=== PATIENT | male | born 1980 | race Caucasian/White ===

== ENCOUNTER 2016-12-02 11:23 | Day surgery (SDC) | payer OTHER ==
[~2016-12-02 11:23] MED LIST: ACETAMINOPHEN 500 MG TABLET PO PRN; HYDROmorphone HCL 2 MG/ML VIAL IV PRN; oxyCODONE HCL/ACETAMINOPHEN 1 TAB TABLET PO PRN
[2016-12-02] MEDS ORDERED: ceFAZolin SODIUM/DEXTROSE,ISO 2 GM/50 ML BAG IV SCH (12:00)
[2016-12-02] MEDS ORDERED: DIPHTH,PERTUSS(ACELL),TET VAC 0.5 ML VIAL IM ONE ×2 (12:00→12:07)
--- NOTE | 2016-12-02 12:06 | ERNOTE ---
Medical Problem HPI - Narrative Date of Service: 12/02/16 - General Chief Complaint: Laceration Time Seen by Provider: 12/02/16 11:45 Source: patient Exam Limitations: no limitations - Immun/Allergies/Home Medications Immunizations: IMMUNIZATION HX Immunizations Up to Date Yes Allergies/Adverse Reactions: Allergies No Known Allergies Allergy (Verified 12/02/16 11:40) Home Medications: HOME MEDICATIONS Cetirizine HCl [Zyrtec] 10 mg PO BID 11/06/12 [Last Taken Unknown] Hydrochlorothiazide [Hydrodiuril] 10 mg PO BID 11/06/12 [Last Taken Unknown] Omeprazole [Prilosec] 20 mg PO DAILY 11/06/12 [Last Taken Unknown] Phentermine HCl [Adipex-P] 37.5 mg PO DAILY 11/06/12 [Last Taken Unknown] Topiramate [Topamax] 15 mg PO BID 12/02/16 [Last Taken Unknown] - History of Present History Narrative: Pt. comes in with c/o laceration to R first finger MCP joint after he cut it on on a metal brace while building his deck just prior to arrival. Pt. denies any SOB, CP, NVD, fever, alleviating factors, aggravating factors or prehospital treatment. Pt. is unsure when his last tetanus vaccine was and states that his ability to extend his finger is impaired. Review of Systems - Review of Systems Constitutional: Present: no symptoms reported. Absent: recent illness, fever, chills, weakness, fatigue, malaise EYE: Present: no symptoms reported ENT: Present: no symptoms reported Respiratory: Present: no symptoms reported. Absent: shortness of breath, cough , wheezing Cardiology: Present: no symptoms reported. Absent: chest pain, palpitations, edema Gastrointestinal/Abdominal: Present: no symptoms reported. Absent: nausea, vomiting, diarrhea Musculoskeletal: Present: joint pain - R index MCP. Absent: joint swelling Skin: Present: other - lacertion accross R index PIP Neurological: Present: tingling - R index finger DTP joint to tip. Absent: headache, dizziness/light-headedness, numbness All Other Systems: All systems neg except as marked - Patient's Past Medical History Patient History - Medical: No pertinent hx Patient History - Cardiac/Respiratory: No pertinent hx Patient History - Cancer: No Hx of Cancer Patient History - Surgical Procedures: T & A, Vasectomy Patient History - Other: None - Family History Family History:: no untoward family reactions to anesthesia, no familial bleeding tendencies, no family history of clotting disorders, no family history of premature - Social History Living Situations: home Psych History: No pertinent hx Smoking Status: Never smoker Alcohol Use: rarely - Immunizations Immunizations Up to Date: Yes Physical Exam - Physical Exam General Appearance: Present: wd/wn, alert, no apparent distress Head Exam: Present: normal inspection, no evidence of injury Eye Exam: Normal inspection: bilateral, PERRL: bilateral, EOMI: bilateral Ears, Nose, Throat: Present: normal ENT inspection, normal pharynx Neck: Present: normal inspection, nontender. Absent: lymphadenopathy (R), lymphadenopathy (L) Respiratory: Present: no respiratory distress, normal breath sounds, no accessory muscle use, chest nontender, lungs clear Cardiovascular/Chest: Present: regular rate, rhythm, no murmur, normal peripheral pulses Back Exam: Present: normal inspection Extremity Exam: Present: decreased range of motion - R index finger extension, other - laceration 1.4cm accross PIP through facia tendons observed moving no obvious injury but cannot exclude microlaceration of finger. Neurological Exam: Present: alert, oriented, normal mood/affect, no motor/ sensory deficits Skin Exam: Present: normal color, warm/dry, other - laceration as described above ED Progress - Date and Time Seen: Date and Time: 12/02/16 12:[address] Sher and he is sending Narinder the PA down to evaluate. Reported to him as DIP but is is PIP I did this mistakenly, Narinder aware. Dr Sher recommends giving ancef one dose here and then sending home on Augmentin. 12/02/16 12:37 Narinder in to see pt. and he feels that what we are seeing is sheath and not tendon so they will take pt. to the OR to do wound exploration. - Vital Signs Patient's Vital Signs:: I have reviewed the patient's vital signs. Vital Signs: Vital Signs 12/02/16 11:29 Temperature 35.9 C L Pulse Rate 84 Respiratory 14 Rate Blood Pressure 149/86 O2 Sat by Pulse 94 Oximetry - Progress/Reassessment Chief Complaint: Laceration Departure - Departure Clinical Impression: Laceration of extensor muscle, fascia and tendon of right index finger at forearm level, initial encounter Disposition: [facility] Condition: Good Referrals: Mark Metzger MD [Primary Care Provider] -
--- NOTE | 2016-12-02 13:17 | CONS ---
<Abhishek Youngle - Last Filed: 12/02/16 13:23> - Reason for consultation (1) Laceration of extensor muscle, fascia and tendon of right index finger at forearm level, initial encounter Date of Service: 12/02/16 HPI - General Date of Service: 12/02/16 Narrative: Pt is a 36 y/o male who presents today with laceration to PIP joint of his right index finger. Pt notes that he was working on his deck when the wrench slipped off and his fingers sliced across a piece of metal on the decking. Pt noted instant laceration of his right index finger. Pt and his came to the ER today for evaluation. Pt currently has pain with motion, improvement with rest. Pt notes no numbness or tingling, but decreased strength to extend his right index finger. Pt has no prior injury to the finger. Pt also notes that the finger was not crushed or smashed during the injury. Source: patient - History of Present Illness Timing/Duration: 1-3 hours Severity: moderate Modifying Factors - (Worsens): Reports: movement Modifying Factors - (Improves): Reports: rest Associated Symptoms: other - no other associated symptoms other than noted in the HPI Allergies/Adverse Reactions: Allergies No Known Allergies Allergy (Verified 12/02/16 11:40) Home Medications: Home Medications Medication Instructions Recorded Last Taken Cetirizine HCl [Zyrtec] 10 mg PO BID 11/06/12 Unknown Hydrochlorothiazide [Hydrodiuril] 10 mg PO BID 11/06/12 Unknown Omeprazole [Prilosec] 20 mg PO DAILY 11/06/12 Unknown Phentermine HCl [Adipex-P] 37.5 mg PO DAILY 11/06/12 Unknown Topiramate [Topamax] 15 mg PO BID 12/02/16 Unknown - Patient's Past Medical History Patient History - Medical: No pertinent hx Patient History - Cardiac/Respiratory: No pertinent hx Patient History - Cancer: No Hx of Cancer Patient History - Surgical Procedures: T & A, Vasectomy Patient History - Other: None - Family History Family History:: no untoward family reactions to anesthesia, no familial bleeding tendencies, no family history of clotting disorders, no family history of premature - Social History Living Situations: home Psych History: No pertinent hx Smoking Status: Never smoker Alcohol Use: rarely - Immunizations Immunizations Up to Date: Yes Procedures ANESTH INJECT-SPIN CANAL (01/11/11) APPLICATION OF SPLINT (09/23/01) CLOS REDUCTION NASAL FX (09/23/01) CLOSURE SKIN & SUBCUTANEOUS NEC (09/23/01) EXCISION OF PILONID CYST (10/11/02) INJECT STEROID (01/11/11) NASAL LACERATION SUTURE (09/23/01) NASAL REPAIR NEC (09/23/01) OPEN REDUCTION NASAL FX (09/23/01) SPINAL CANAL INJECT NEC (01/11/11) SUTURE OF LIP LACERATION (09/23/01) TONSILLECTOMY/ADENOIDEC (03/29/13) Medications - Medications Current Medications: Current Medications Cefazolin Sodium/Dextrose (Ancef) 2 gm in 50 mls @ 100 mls/hr IV ONCE FILOMENA PRN Reason: Protocol Stop: 01/01/17 12:01 Last Admin: 12/02/16 12:43 Dose: 100 mls/hr Physical Examination - Exam Vital Signs: Vital Signs - Last Taken Temp 35.9 C L 12/02/16 11:29 Pulse 84 12/02/16 11:29 Resp 14 12/02/16 11:29 BP 149/86 12/02/16 11:29 Pulse Ox 94 12/02/16 11:29 O2 Oxygen Delivery Method Room Air Constitutional: Present: Alert, Oriented x3, No distress Respiratory: Present: no respiratory distress Extremity: Present: other - RUE --> laceration to dorsal aspect of right index finger extending down through fascia, strength 3+/5, cap refill < 3 sec, no numbness or tingling, full flexion -5 degrees of extension of right index finger Appearance: Present: appropriate appearance Thoughts: Present: normal thought pattern, no apparent hallucination - Results and Findings: Narrative: Pt is a 36 y/o male who presents with acute laceration to dorsal aspect of right index PIP- - Wound was blocked with local anesthetic, and explored, could not find definable extensor tendon - Recommend wound exploration with possible extensor tendon repair of right index finger - Discussed with patient the benefits of conservative vs. surgical treatment to determine if the extensor tendon needed repair. Pt elected to proceed with surgery. Discussed the risk of bleeding, numbness, infection, and loss of ROM of index digit. Pt agreed and consented for surgery. - Assessments/Findings (1) Laceration of extensor muscle, fascia and tendon of right index finger at forearm level, initial encounter Problem: Acute <Rafa Sher - Last Filed: 12/02/16 13:34> Procedures ANESTH INJECT-SPIN CANAL (01/11/11) APPLICATION OF SPLINT (09/23/01) CLOS REDUCTION NASAL FX (09/23/01) CLOSURE SKIN & SUBCUTANEOUS NEC (09/23/01) EXCISION OF PILONID CYST (10/11/02) INJECT STEROID (01/11/11) NASAL LACERATION SUTURE (09/23/01) NASAL REPAIR NEC (09/23/01) OPEN REDUCTION NASAL FX (09/23/01) SPINAL CANAL INJECT NEC (01/11/11) SUTURE OF LIP LACERATION (09/23/01) TONSILLECTOMY/ADENOIDEC (03/29/13) Medications - Medications Current Medications: Current Medications Cefazolin Sodium/Dextrose (Ancef) 2 gm in 50 mls @ 100 mls/hr IV ONCE FILOMENA PRN Reason: Protocol Stop: 01/01/17 12:01 Last Admin: 12/02/16 12:43 Dose: 100 mls/hr Physical Examination - Exam Vital Signs: Vital Signs - Last Taken Temp 35.9 C L 12/02/16 13:00 Pulse 84 12/02/16 13:00 Resp 14 12/02/16 13:00 BP 149/86 12/02/16 13:00 Pulse Ox 94 12/02/16 13:00 O2 Oxygen Delivery Method Room Air - Results and Findings: Narrative: Saw and examined patient in ED. He has a ~ 1 cm transverse laceration over the dorsum of the R index finger, just distal to the PIP joint. He is able to actively extend the finger but this is weak and he has ~ 5-10 deg of extension lag. I am concerned that he may have an injury to the central slip given his exam. I recommended formal wound exploration with repair of the extensor tendon as indicated. I counseled him on the risks including, but not limited to , infection, bleeding, failure of repair, numbness, extensor lag, stiffness, wound complications, and need for additional procedures. After discussion, he wishes to proceed with wound exploration and possible extensor tendon repair of the right index finger. He received 2 g Ancef in the ED and his tetanus was updated. Rafa Sher MD
[2016-12-02] MEDS ORDERED: RINGER'S SOLUTION,LACTATED 1,000 ML IV ONE (13:50)
[2016-12-02] MEDS ORDERED: BUPIVACAINE HCL 50 ML VIAL IJ ONE ×2 (14:12)
--- NOTE | 2016-12-02 16:10 | OR ---
Operative Report - Dictated Report Narrative: Date: 12/02/2016 Physician: Rafa Sher M.D. Workforce Consultant: Narinder Young PA-C Preoperative diagnosis: Right index finger laceration Postoperative diagnosis: Right index finger laceration with extensor tendon disruption Procedure: Right index finger wound exploration with extensor tendon repair Anesthesia: Gen. plus digital block Complications: None Estimated blood loss: Minimal Tourniquet time: 49 Minutes at 250 mmHg Specimens: None Retained implants: None Drains: None Indications: Carl Is a 36 year-old male who sustained a laceration to the right index finger while driving in some metal posts. He was initially evaluated in the emergency department where there was concern for possible extensor tendon disruption. I counseled the patient that I recommended wound exploration to evaluate the status of the extensor tendon with repair as indicated. I discussed the risks with the patient and his in detail including, but not limited to, bleeding, infection, failure of repair, extensor lag, Boutonierre deformity, stiffness, wound complications, and need for additional procedures. Consent was obtained in the clinic. Procedure: After marking the correct extremity in the preoperative holding area, a timeout was performed in the operating room. IV antibiotics consisting of 2 grams of Ancef had been given in the ED prior to the procedure. A well-padded, nonsterile tourniquet was applied to the operative upper arm. 0.5% Marcaine without epinephrine was used to perform a digital block of the right index finger. Using loupe magnification, the transverse laceration over the PIP joint was extended proximally and distally in a longitudinal fashion creating a Z-shaped incision. Blunt dissection with tenotomy scissors was used to elevate the skin flaps proximally and distally revealing the extensor tendon sheath. Following irrigation, it was noted that the laceration extended into the PIP joint with laceration of the radial sagittal band as well as the central slip proximal to its insertion into the middle phalanx. At this point the wound was copiously irrigated with normal saline and noted to have no gross contamination. We then proceeded with repair of the radial sagittal band as well as the central slip. This was done using 4-0 Supramid suture. Additional 4-0 Vicryl was placed in an epitendinous fashion to augment our repair. The finger was taken through a range of motion and found to have no gapping at our tendon repair sites. The wound was again irrigated and the skin was then closed with interrupted 4-0 nylon suture. Sterile dressings consisting of Xeroform, 4 x 4, and tube gauze were applied. A volar AlumaFoam splint was then placed keeping the PIP in full extension. All sponge, needle, blade, and instrument counts were correct prior to closing the wounds. The patient was awoken and transferred to the post-anesthesia care unit in stable condition.
[2016-12-02 16:35] VITALS: BP 137/86
[2016-12-02] MEDS ORDERED: AMOX TR/POTASSIUM CLAVULANATE 500 MG TABLET PO SCH (21:00)
== END 2016-12-02 13:01 | disposition home or self-care (01) ==
LOC: ER 11:23 → AMB 13:00
PROVIDERS: ATTEND Orthopaedic Surgery
PROC: 0LQ70ZZ Repair Right Hand Tendon, Open Approach (ICD-10-PCS; principal; 2016-12-02 14:00)
DX: S61.210A Laceration without foreign body of right index finger without damage to nail, initial encounter (principal); S56.421A Laceration of extensor muscle, fascia and tendon of right index finger at forearm level, initial encounter; W45.8XXA Other foreign body or object entering through skin, initial encounter; Z68.39 Body mass index [BMI] 39.0-39.9, adult

== ENCOUNTER 2017-06-04 20:25 | Emergency (ER) | payer OTHER ==
[2017-06-04] MEDS ORDERED: HYDROmorphone HCL 1 MG/ML DISP.SYRIN IM ONE ×2 (21:05→23:17)
[2017-06-04] MEDS ORDERED: HYDROmorphone HCL 2 MG/ML VIAL ONE ×2 (21:13→23:20)
[2017-06-04] MEDS ORDERED: ENOXAPARIN SODIUM 100 MG/ML SYRG SC ONE ×2 (21:35→21:44)
[2017-06-04 21:41] LABS: Prothrombin Time (Patient) 9.9 Seconds (9.0-11.0)
--- NOTE | 2017-06-04 21:42 | ERNOTE ---
Lower Extremity HPI - Narrative Date of Service: 06/04/17 - General Lower Extremities Pain: thigh: left Time Seen by Provider: 06/04/17 21:00 Source: patient, family Exam Limitations: no limitations - Immun/Allergies/Home Medications Immunizations: IMMUNIZATION HX Immunizations Up to Date Yes History of Influenza Vaccine Yes Hx Pneumococcal Vaccination No Allergies/Adverse Reactions: Allergies Allergy/AdvReac Type Severity Reaction Status Date / Time No Known Allergies Allergy Verified 06/04/17 20:56 Home Medications: HOME MEDICATIONS Cetirizine HCl [Zyrtec] 10 mg PO BID 11/06/12 [Last Taken Unknown] Hydrochlorothiazide [Hydrodiuril] 10 mg PO BID 11/06/12 [Last Taken Unknown] Omeprazole [Prilosec] 20 mg PO DAILY 11/06/12 [Last Taken Unknown] Phentermine HCl [Adipex-P] 37.5 mg PO DAILY 11/06/12 [Last Taken Unknown] HYDROcodone/ACETAMINOPHEN [Hydrocodon-Acetaminophen 5-325] 1 each PO Q6H PRN # 20 tablet 12/02/16 [Last Taken Unknown] Topiramate [Topamax] 15 mg PO BID 12/02/16 [Last Taken Unknown] Allopurinol [Zyloprim (Allopurinol)] 100 mg PO 06/04/17 [Last Taken Unknown] Potassium 06/04/17 [Last Taken Unknown] Naproxen [Naprosyn] 500 mg PO BID PRN #20 tablet 06/05/17 [Last Taken Unknown] - History of Present Illness Narrative: 37 year old that drove for 10 hours on Tuesday. Tuesday he noted right thigh pain that has gotten worse. Pain with ambulation. The pain now extends from the groing to the proximal leg with associated thigh swelling. No complaints of shortness of breath, previous DVT,fever or PE. His is a nurse practioner who tried to encourage him to be seen sooner but he was resistant. Date (Duration): 06/04/17 Time (Timing): 21:39 Occurred: other Method of Injury: Reports: no apparent injury Modifying Factors - (Improves): Reports: rest Modifying Factors - (Worsens): Reports: movement Other Injuries: Reports: none Review of Systems - Review of Systems Constitutional: Present: no symptoms reported EYE: Present: no symptoms reported ENT: Present: no symptoms reported Respiratory: Present: no symptoms reported Cardiology: Present: no symptoms reported Gastrointestinal/Abdominal: Present: no symptoms reported Genitourinary: Present: no symptoms reported Musculoskeletal: Present: See HPI Skin: Present: no symptoms reported Neurological: Present: no symptoms reported Endocrine: Present: no symptoms reported Hematologic/Lymphatic: Present: no symptoms reported Psych: Present: no symptoms reported - Patient's Past Medical History Patient History - Medical: No pertinent hx, Diabetes Type 2, Other Patient History - Cardiac/Respiratory: No pertinent hx Patient History - Cancer: No Hx of Cancer Patient History - Surgical Procedures: T & A, Vasectomy, Other Patient History - Other: None - Social History Living Situations: spouse Psych History: No pertinent hx Smoking Status: Former smoker Have you smoked in the past 12 months: No Do you dip or chew tobacco: No Smoking Stop Date: 04/18/02 Alcohol Use: occasionally Drug Use: none - Immunizations Immunizations Up to Date: Yes Hx Pneumococcal Vaccination: No History of Influenza Vaccine: Yes Physical Exam - Physical Exam General Appearance: Present: mild distress Head Exam: Present: normal inspection Eye Exam: Normal inspection: bilateral, PERRL: bilateral, EOMI: bilateral Ears, Nose, Throat: Present: normal ENT inspection Neck: Present: normal inspection Respiratory: Present: no respiratory distress, normal breath sounds Cardiovascular/Chest: Present: regular rate, rhythm Gastrointestinal/Abdominal: Present: nondistended Back Exam: Present: normal inspection Extremity Exam: Present: extremity edema - left thigh. Tenderness with palpation at the medial thigh. No tenderness at the calf. Neurological Exam: Present: alert Skin Exam: Present: normal color ED Progress - Vital Signs Patient's Vital Signs:: I have reviewed the patient's vital signs. Vital Signs: Vital Signs 06/04/17 20:45 Temperature 36.8 C Pulse Rate 106 H Respiratory 14 Rate Blood Pressure 146/90 O2 Sat by Pulse 97 Oximetry - X-Ray X-Ray #1 X-Ray: pelvis Interpretation: Interp. by me X-ray Comments: no fracture or lytic lesion. - Progress/Reassessment Chief Complaint: Lower Extremity Pain/ Injury Progress:: Improved Progress Note-Subjective: 06/05/17 00:07 Pain was controlled with Dilaudid. A CT of the abdomen/pelvis was discussed but the patient declined and will follow up with his primary care physician next week. A DVT was ruled out by the negative US. Plain films did not reveal any abnormalities. The pain could be radiating from the lumbar spine? Departure Clinical Impression: Pain of right leg - Departure Disposition: Home self-care Condition: Good Instructions: Hip Pain Print Language: Belarusian Additional Instructions: Return to the ED if the pain worsens or is not controlled by the medication. Referrals: Mark Metzger MD [Primary Care Provider] - Prescriptions: Naproxen [Naprosyn] 500 mg PO BID PRN #20 tablet PRN Reason: Pain
[2017-06-04 21:50] LABS: INR 0.99 INR (0.90-1.10); Partial Thrombolplastin Time 25.3 Seconds (24-32)
[2017-06-05 00:19] VITALS: BP 145/91
== END 2017-06-05 00:10 | disposition home or self-care (01) ==
LOC: ER 20:25
DX: M79.605 Pain in left leg (principal); Z87.891 Personal history of nicotine dependence